=== PATIENT | female | born 1990 | race Caucasian/White ===

== ENCOUNTER → 2018-07-01 | Outpatient (CLI) | payer OTHER ==
[~2018-07-01] MED LIST: ALPRAZOLAM; HYDROCODON-ACE1 EACH PO; XANAX XR1 MG PO; XANAX XR2 MG PO; ZANAFLEX4 M1 PO
== END ==
LOC: NUC 09:36
DX: G90.521 Complex regional pain syndrome I of right lower limb (principal)